=== PATIENT | female | born 1950 | race Caucasian/White ===

== ENCOUNTER 2020-05-14 13:53 | Inpatient (IN) ==
[2020-05-14] MEDS ORDERED: D5% in Water 1,000 ML IVC PRN (20:35)
[2020-05-14] MEDS ORDERED: *HR* Dextrose 50 % in Water (Vial) 50 ML VIAL IVP PRN (20:35)
[2020-05-14] MEDS ORDERED: Dextrose Gel 15 GM/37.5 ML TUBE PO PRN ×2 (20:35)
[2020-05-14] MEDS ORDERED: Dextrose Gel 15 GM/37.5 ML TUBE PO ONE (20:38)
[2020-05-15] MEDS ORDERED: Ondansetron ODT 4 MG TAB.RAPDIS PO PRN (01:48)
[2020-05-15] MEDS: *HR* Enoxaparin 40 MG/0.4 ML SYRINGE SQ SCH (05:05)
[2020-05-15] MEDS: *HR* OxyCODONE/APAP 5/325 TABLET PO PRN ×2 (05:05→19:48)
[2020-05-15] MEDS: Metoprolol 100 MG TABLET PO SCH ×2 (09:00→19:48)
[2020-05-15] MEDS: Furosemide 20 MG TABLET PO SCH (09:00)
[2020-05-15] MEDS: Acyclovir 200 MG CAPSULE PO SCH ×2 (09:00→19:48)
[2020-05-15] MEDS: Acetaminophen 325 MG TABLET PO PRN (09:00)
[2020-05-15] MEDS: Insulin DETEMIR 100 UNIT/ML X5UNITS SQ SCH (09:30)
[2020-05-15] MEDS: (Lenalidomide [Revlimid] 10 MG) PO SCH (09:39)
[2020-05-15] MEDS: Aspirin Enteric Coated 81 MG Tablet PO SCH (17:51)
[2020-05-16] MEDS: *HR* Enoxaparin 40 MG/0.4 ML SYRINGE SQ SCH (04:57)
[2020-05-16] MEDS: Acetaminophen 325 MG TABLET PO PRN ×2 (05:02→21:30)
[2020-05-16 05:50] LABS: Basophils % 0.5 %; Eosinophils # 0.3 K/mcL (0.0-0.6); Eosinophils % 6.8 %; Hematocrit 30.6 % (35.3-44.9); Hemoglobin 10.1 g/dL (11.5-15.4); Immature Granulocytes % 0.5 % (0-4); Lymphocytes # 0.5 K/mcL (0.6-4.6); Lymphocytes % 11.6 %; Mean Corpuscular Hemoglobin 29.4 pg (28.0-33.3); Mean Corpuscular Volume 89.2 fL (83.0-100.0); Mean Platelet Volume 11.2 fL (9.4-12.4); Monocytes # 0.6 K/mcL (0.0-1.3); Monocytes % 13.6 %; Neutrophils # 2.8 K/mcL (1.6-8.9); Platelet Count 144 K/mcL (140-400); Red Blood Count 3.43 M/mcL (3.82-4.97); Red Cell Distribution Width 16.3 % (11.5-14.5); White Blood Count 4.1 K/mcL (4.3-11.1)
[2020-05-16 06:02] LABS: BUN/Creatinine Ratio 19 (6-26); Blood Urea Nitrogen 11 mg/dL (8-23); Calcium 7.3 mg/dL (8.6-10.3); Carbon Dioxide 26 mEq/L (23-29); Chloride 107 mEq/L (98-107); Glucose 81 mg/dL (70-105); Osmolality,Calculated 284 (280-300); Potassium 2.9 mEq/L (3.5-5.1); Sodium 138 mEq/L (136-145); eGFR For African Americans > 60 (> 60); eGFR For Non-African Americans > 60 (> 60)
[2020-05-16] MEDS: Furosemide 20 MG TABLET PO SCH (10:01)
[2020-05-16] MEDS: Acyclovir 200 MG CAPSULE PO SCH ×2 (10:01→21:29)
[2020-05-16] MEDS: Metoprolol 100 MG TABLET PO SCH ×2 (10:02→21:28)
[2020-05-16] MEDS: *HR* OxyCODONE/APAP 5/325 TABLET PO PRN ×2 (10:02→17:11)
[2020-05-16] MEDS: Loratadine 10 MG TABLET PO SCH (10:02)
[2020-05-16] MEDS: (Lenalidomide [Revlimid] 10 MG) PO SCH (12:16)
[2020-05-16] MEDS: Insulin DETEMIR 100 UNIT/ML X5UNITS SQ SCH (12:17)
[2020-05-16] MEDS: Aspirin Enteric Coated 81 MG Tablet PO SCH (17:11)
[2020-05-17 06:07] LABS: Basophils % 0.5 %; Eosinophils # 0.3 K/mcL (0.0-0.6); Eosinophils % 6.7 %; Hematocrit 31.4 % (35.3-44.9); Immature Granulocytes % 0.3 % (0-4); Lymphocytes # 0.6 K/mcL (0.6-4.6); Mean Corpuscular HGB Conc 31.8 g/dL (31.6-35.5); Mean Corpuscular Hemoglobin 28.9 pg (28.0-33.3); Mean Corpuscular Volume 90.8 fL (83.0-100.0); Mean Platelet Volume 10.9 fL (9.4-12.4); Monocytes # 0.5 K/mcL (0.0-1.3); Monocytes % 13.4 %; Neutrophils # 2.4 K/mcL (1.6-8.9); Platelet Count 168 K/mcL (140-400); Red Blood Count 3.46 M/mcL (3.82-4.97); Red Cell Distribution Width 16.4 % (11.5-14.5); Segmented Neutrophils % 64.1 %; White Blood Count 3.7 K/mcL (4.3-11.1)
[2020-05-17 06:26] LABS: BUN/Creatinine Ratio 15 (6-26); Blood Urea Nitrogen 11 mg/dL (8-23); Calcium 7.8 mg/dL (8.6-10.3); Carbon Dioxide 28 mEq/L (23-29); Chloride 106 mEq/L (98-107); Glucose 88 mg/dL (70-105); Osmolality,Calculated 287 (280-300); Potassium 3.6 mEq/L (3.5-5.1); Sodium 139 mEq/L (136-145); eGFR For African Americans > 60 (> 60); eGFR For Non-African Americans > 60 (> 60)
[2020-05-17] MEDS: *HR* OxyCODONE/APAP 5/325 TABLET PO PRN ×2 (06:30→18:45)
[2020-05-17] MEDS: *HR* Enoxaparin 40 MG/0.4 ML SYRINGE SQ SCH (06:30)
[2020-05-17] MEDS: (Lenalidomide [Revlimid] 10 MG) PO SCH (08:22)
[2020-05-17] MEDS: Acyclovir 200 MG CAPSULE PO SCH ×2 (08:30→21:52)
[2020-05-17] MEDS: Loratadine 10 MG TABLET PO SCH ×2 (08:30→18:03)
[2020-05-17] MEDS: Furosemide 20 MG TABLET PO SCH (08:30)
[2020-05-17] MEDS: Metoprolol 100 MG TABLET PO SCH ×2 (08:30→21:51)
[2020-05-17] MEDS: Insulin DETEMIR 100 UNIT/ML X5UNITS SQ SCH (11:08)
[2020-05-17] MEDS: Acetaminophen 325 MG TABLET PO PRN (12:43)
[2020-05-17] MEDS: Aspirin Enteric Coated 81 MG Tablet PO SCH (18:03)
[2020-05-18] MEDS: *HR* Enoxaparin 40 MG/0.4 ML SYRINGE SQ SCH (06:06)
[2020-05-18] MEDS: *HR* OxyCODONE/APAP 5/325 TABLET PO PRN ×2 (06:07→18:47)
[2020-05-18] MEDS: Furosemide 20 MG TABLET PO SCH (09:09)
[2020-05-18] MEDS: Acyclovir 200 MG CAPSULE PO SCH ×2 (09:09→22:01)
[2020-05-18] MEDS: Apixaban 5 MG TABLET PO SCH ×2 (09:09→22:01)
[2020-05-18] MEDS: Metoprolol 100 MG TABLET PO SCH ×2 (09:10→22:01)
[2020-05-18] MEDS: (Lenalidomide [Revlimid] 10 MG) PO SCH (09:10)
[2020-05-18] MEDS: Insulin DETEMIR 100 UNIT/ML X5UNITS SQ SCH (11:32)
[2020-05-18] MEDS: Acetaminophen 325 MG TABLET PO PRN ×2 (14:34→22:00)
[2020-05-18] MEDS: Loratadine 10 MG TABLET PO SCH (17:28)
[2020-05-18] MEDS: Aspirin Enteric Coated 81 MG Tablet PO SCH (17:28)
[2020-05-19 06:11] LABS: Basophils # 0.1 K/mcL (0.0-0.2); Basophils % 1.4 %; Eosinophils # 0.2 K/mcL (0.0-0.6); Eosinophils % 6.5 %; Hematocrit 29.4 % (35.3-44.9); Hemoglobin 9.3 g/dL (11.5-15.4); Immature Granulocytes % 0.3 % (0-4); Lymphocytes # 0.9 K/mcL (0.6-4.6); Lymphocytes % 24.8 %; Mean Corpuscular HGB Conc 31.6 g/dL (31.6-35.5); Mean Corpuscular Hemoglobin 28.8 pg (28.0-33.3); Mean Platelet Volume 10.2 fL (9.4-12.4); Monocytes # 0.5 K/mcL (0.0-1.3); Monocytes % 12.8 %; Platelet Count 211 K/mcL (140-400); Red Blood Count 3.23 M/mcL (3.82-4.97); Red Cell Distribution Width 16.3 % (11.5-14.5); Segmented Neutrophils % 54.2 %; White Blood Count 3.7 K/mcL (4.3-11.1)
[2020-05-19 06:32] LABS: BUN/Creatinine Ratio 17 (6-26); Blood Urea Nitrogen 12 mg/dL (8-23); Calcium 7.2 mg/dL (8.6-10.3); Carbon Dioxide 27 mEq/L (23-29); Chloride 109 mEq/L (98-107); Glucose 62 mg/dL (70-105); Osmolality,Calculated 288 (280-300); Sodium 140 mEq/L (136-145); eGFR For African Americans > 60 (> 60); eGFR For Non-African Americans > 60 (> 60)
[2020-05-19] MEDS: Acyclovir 200 MG CAPSULE PO SCH ×2 (08:14→19:39)
[2020-05-19] MEDS: Apixaban 5 MG TABLET PO SCH ×2 (08:14→19:39)
[2020-05-19] MEDS: Acetaminophen 325 MG TABLET PO PRN (08:25)
[2020-05-19] MEDS: Furosemide 20 MG TABLET PO SCH (08:26)
[2020-05-19] MEDS: Metoprolol 100 MG TABLET PO SCH ×2 (08:26→19:39)
[2020-05-19] MEDS: Insulin DETEMIR 100 UNIT/ML X5UNITS SQ SCH (08:26)
[2020-05-19] MEDS: (Lenalidomide [Revlimid] 10 MG) PO SCH (08:27)
[2020-05-19] MEDS: Aspirin Enteric Coated 81 MG Tablet PO SCH (17:32)
[2020-05-19] MEDS: Loratadine 10 MG TABLET PO SCH (17:37)
[2020-05-19] MEDS: *HR* OxyCODONE/APAP 5/325 TABLET PO PRN (19:39)
[2020-05-20] MEDS: Acetaminophen 325 MG TABLET PO PRN ×2 (08:19→13:17)
[2020-05-20] MEDS: Metoprolol 100 MG TABLET PO SCH ×2 (08:19→19:39)
[2020-05-20] MEDS: Insulin DETEMIR 100 UNIT/ML X5UNITS SQ SCH (08:20)
[2020-05-20] MEDS: (Lenalidomide [Revlimid] 10 MG) PO SCH (08:20)
[2020-05-20] MEDS: Furosemide 20 MG TABLET PO SCH (08:20)
[2020-05-20] MEDS: Acyclovir 200 MG CAPSULE PO SCH ×2 (08:20→19:40)
[2020-05-20] MEDS: Apixaban 5 MG TABLET PO SCH ×2 (08:20→19:39)
[2020-05-20] MEDS: Loratadine 10 MG TABLET PO SCH (17:43)
[2020-05-20] MEDS: Aspirin Enteric Coated 81 MG Tablet PO SCH (17:43)
[2020-05-20] MEDS: *HR* OxyCODONE/APAP 5/325 TABLET PO PRN (19:39)
[2020-05-21] MEDS: Acetaminophen 325 MG TABLET PO PRN (07:37)
[2020-05-21] MEDS: Apixaban 5 MG TABLET PO SCH ×2 (08:16→19:25)
[2020-05-21] MEDS: Acyclovir 200 MG CAPSULE PO SCH ×2 (08:16→19:28)
[2020-05-21] MEDS: Insulin DETEMIR 100 UNIT/ML X5UNITS SQ SCH (08:16)
[2020-05-21] MEDS: Furosemide 20 MG TABLET PO SCH (08:17)
[2020-05-21] MEDS: (Lenalidomide [Revlimid] 10 MG) PO SCH (08:18)
[2020-05-21] MEDS: Metoprolol 100 MG TABLET PO SCH ×2 (09:54→19:28)
[2020-05-21] MEDS: *HR* OxyCODONE/APAP 5/325 TABLET PO PRN ×2 (10:09→19:27)
[2020-05-21] MEDS: Aspirin Enteric Coated 81 MG Tablet PO SCH (16:59)
[2020-05-21] MEDS: Loratadine 10 MG TABLET PO SCH (16:59)
[2020-05-22 07:30] VITALS: BP 124/72
[2020-05-22] MEDS: Apixaban 5 MG TABLET PO SCH (08:23)
[2020-05-22] MEDS: Acyclovir 200 MG CAPSULE PO SCH (08:23)
[2020-05-22] MEDS: *HR* OxyCODONE/APAP 5/325 TABLET PO PRN (08:23)
[2020-05-22] MEDS: Furosemide 20 MG TABLET PO SCH (08:24)
[2020-05-22] MEDS: Metoprolol 100 MG TABLET PO SCH (08:25)
[2020-05-22] MEDS: Insulin DETEMIR 100 UNIT/ML X5UNITS SQ SCH (09:19)
[2020-05-22] MEDS: (Lenalidomide [Revlimid] 10 MG) PO SCH (09:21)
== END 2020-05-22 11:45 | disposition home health service (06) | DRG 560 ==
LOC: INPGRE 18:40
PROVIDERS: ADMIT Family Medicine; ATTEND Family Medicine

== ENCOUNTER 2020-05-31 13:37 | Inpatient (IN) ==
[2020-05-31] MEDS ORDERED: Dextrose Gel 15 GM/37.5 ML TUBE PO PRN ×2 (19:51)
[2020-05-31] MEDS ORDERED: *HR* Dextrose 50 % in Water (Vial) 50 ML VIAL IVP PRN (19:51)
[2020-05-31] MEDS ORDERED: D5% in Water 1,000 ML IVC PRN (19:51)
[2020-05-31] MEDS ORDERED: *HR* OxyCODONE/APAP 5/325 TABLET PO PRN (19:55)
[2020-05-31] MEDS ORDERED: Ondansetron ODT 4 MG TAB.RAPDIS PO PRN (19:55)
[2020-05-31] MEDS: Gabapentin 100 MG CAPSULE PO SCH (21:16)
[2020-05-31] MEDS: Nystatin SUSP 5 ML UD.LIQ PO SCH ×2 (21:16→21:32)
[2020-05-31] MEDS: Metoprolol 100 MG TABLET PO SCH (21:16)
[2020-05-31] MEDS: Acyclovir 200 MG CAPSULE PO SCH (21:16)
[2020-05-31] MEDS: Apixaban 5 MG TABLET PO SCH (21:16)
[2020-05-31] MEDS: *HR* OxyCODONE/APAP 5/325 TABLET PO PRN (21:17)
[2020-05-31] MEDS: polyethylene glycoL 3350 17 GM POWD.PACK PO SCH (21:19)
[2020-05-31] MEDS: Acetaminophen 325 MG TABLET PO SCH (21:20)
[2020-05-31] MEDS: Insulin LISPRO 300 UNITS/3 ML VIAL SQ SCH (21:33)
[2020-06-01 05:33] LABS: Basophils % 0.8 %; Eosinophils # 0.2 K/mcL (0.0-0.6); Eosinophils % 4.9 %; Hematocrit 26.8 % (35.3-44.9); Hemoglobin 8.4 g/dL (11.5-15.4); Immature Granulocytes % 0.6 % (0-4); Lymphocytes # 0.8 K/mcL (0.6-4.6); Lymphocytes % 16.8 %; Mean Corpuscular HGB Conc 31.3 g/dL (31.6-35.5); Mean Corpuscular Hemoglobin 28.8 pg (28.0-33.3); Mean Corpuscular Volume 91.8 fL (83.0-100.0); Mean Platelet Volume 10.1 fL (9.4-12.4); Monocytes # 0.6 K/mcL (0.0-1.3); Monocytes % 12.3 %; Neutrophils # 3.2 K/mcL (1.6-8.9); Platelet Count 268 K/mcL (140-400); Red Blood Count 2.92 M/mcL (3.82-4.97); Red Cell Distribution Width 18.4 % (11.5-14.5); Segmented Neutrophils % 64.6 %; White Blood Count 4.9 K/mcL (4.3-11.1)
[2020-06-01 05:41] LABS: INR 1.3; Prothrombin Time 14.7 Seconds (9.4-12.1)
[2020-06-01 05:43] LABS: Activated Partial Thrombo Time 31.5 Seconds (26.0-36.0)
[2020-06-01] MEDS: *HR* OxyCODONE/APAP 10/325 TABLET PO PRN ×2 (05:43→17:32)
[2020-06-01 05:56] LABS: BUN/Creatinine Ratio 13 (6-26); Blood Urea Nitrogen 6 mg/dL (8-23); Calcium 7.5 mg/dL (8.6-10.3); Carbon Dioxide 24 mEq/L (23-29); Chloride 109 mEq/L (98-107); Glucose 158 mg/dL (70-105); Osmolality,Calculated 285 (280-300); Potassium 4.4 mEq/L (3.5-5.1); Sodium 137 mEq/L (136-145); eGFR For African Americans > 60 (> 60); eGFR For Non-African Americans > 60 (> 60)
[2020-06-01] MEDS: Insulin LISPRO 300 UNITS/3 ML VIAL SQ SCH ×4 (08:41→20:08)
[2020-06-01] MEDS ORDERED: Loratadine 10 MG TABLET PO SCH (09:00)
[2020-06-01] MEDS ORDERED: Aspirin Enteric Coated 81 MG Tablet PO SCH (09:00)
[2020-06-01] MEDS: Insulin DETEMIR 100 UNIT/ML X5UNITS SQ SCH (10:07)
[2020-06-01] MEDS: Metoprolol 100 MG TABLET PO SCH ×2 (10:08→20:37)
[2020-06-01] MEDS: Gabapentin 100 MG CAPSULE PO SCH ×3 (10:09→20:29)
[2020-06-01] MEDS: Acyclovir 200 MG CAPSULE PO SCH ×2 (10:10→20:32)
[2020-06-01] MEDS: Nystatin SUSP 5 ML UD.LIQ PO SCH ×3 (10:11→15:55)
[2020-06-01] MEDS: Apixaban 5 MG TABLET PO SCH ×2 (10:11→20:29)
[2020-06-01] MEDS: Furosemide 20 MG TABLET PO SCH (10:11)
[2020-06-01] MEDS: (Lenalidomide [Revlimid] 10 MG) PO SCH (10:12)
[2020-06-01] MEDS: polyethylene glycoL 3350 17 GM POWD.PACK PO SCH ×2 (10:12→20:38)
[2020-06-01] MEDS: Sennosides 8.6 MG TABLET PO SCH (10:12)
[2020-06-01] MEDS: Acetaminophen 325 MG TABLET PO SCH ×3 (10:13→20:29)
[2020-06-01] MEDS: Aspirin Enteric Coated 81 MG Tablet PO SCH (20:29)
[2020-06-01] MEDS: Loratadine 10 MG TABLET PO SCH (21:00)
[2020-06-02] MEDS: (Lenalidomide [Revlimid] 10 MG) PO SCH ×2 (08:31→16:10)
[2020-06-02] MEDS: polyethylene glycoL 3350 17 GM POWD.PACK PO SCH ×2 (08:31→21:52)
[2020-06-02] MEDS: Gabapentin 100 MG CAPSULE PO SCH ×3 (08:32→21:51)
[2020-06-02] MEDS: Acyclovir 200 MG CAPSULE PO SCH ×2 (08:32→21:49)
[2020-06-02] MEDS: Furosemide 20 MG TABLET PO SCH (08:32)
[2020-06-02] MEDS: Sennosides 8.6 MG TABLET PO SCH (08:32)
[2020-06-02] MEDS: Acetaminophen 325 MG TABLET PO SCH ×3 (08:33→21:52)
[2020-06-02] MEDS: Apixaban 5 MG TABLET PO SCH ×2 (08:33→21:50)
[2020-06-02] MEDS: Metoprolol 100 MG TABLET PO SCH ×2 (08:33→21:50)
[2020-06-02] MEDS: Insulin DETEMIR 100 UNIT/ML X5UNITS SQ SCH (08:38)
[2020-06-02] MEDS: Insulin LISPRO 300 UNITS/3 ML VIAL SQ SCH ×4 (08:39→21:51)
[2020-06-02] MEDS: *HR* OxyCODONE/APAP 5/325 TABLET PO PRN (12:02)
[2020-06-02] MEDS: Loratadine 10 MG TABLET PO SCH (21:51)
[2020-06-02] MEDS: Aspirin Enteric Coated 81 MG Tablet PO SCH (21:51)
[2020-06-03 05:13] LABS: Mean Corpuscular HGB Conc 30.8 g/dL (31.6-35.5); Mean Corpuscular Hemoglobin 28.4 pg (28.0-33.3); Mean Corpuscular Volume 92.2 fL (83.0-100.0); Mean Platelet Volume 9.7 fL (9.4-12.4); Platelet Count 308 K/mcL (140-400); Red Blood Count 2.82 M/mcL (3.82-4.97); Red Cell Distribution Width 18.3 % (11.5-14.5); White Blood Count 5.7 K/mcL (4.3-11.1)
[2020-06-03 05:30] LABS: BUN/Creatinine Ratio 12 (6-26); Blood Urea Nitrogen 6 mg/dL (8-23); Carbon Dioxide 24 mEq/L (23-29); Chloride 109 mEq/L (98-107); Glucose 190 mg/dL (70-105); Magnesium 1.7 mg/dL (1.6-2.6); Osmolality,Calculated 289 (280-300); Potassium 4.2 mEq/L (3.5-5.1); Sodium 138 mEq/L (136-145); eGFR For African Americans > 60 (> 60); eGFR For Non-African Americans > 60 (> 60)
[2020-06-03] MEDS: *HR* OxyCODONE Immed Rel 5 MG TABLET PO PRN ×3 (07:02→21:54)
[2020-06-03] MEDS: Acyclovir 200 MG CAPSULE PO SCH ×2 (08:11→21:18)
[2020-06-03] MEDS: Furosemide 20 MG TABLET PO SCH (08:11)
[2020-06-03] MEDS: Insulin DETEMIR 100 UNIT/ML X5UNITS SQ SCH (08:11)
[2020-06-03] MEDS: Gabapentin 100 MG CAPSULE PO SCH ×3 (08:11→21:17)
[2020-06-03] MEDS: Acetaminophen 325 MG TABLET PO SCH ×3 (08:11→21:25)
[2020-06-03] MEDS: Insulin LISPRO 300 UNITS/3 ML VIAL SQ SCH ×4 (08:11→21:56)
[2020-06-03] MEDS: Metoprolol 100 MG TABLET PO SCH ×2 (08:12→21:15)
[2020-06-03] MEDS: Sennosides 8.6 MG TABLET PO SCH (08:12)
[2020-06-03] MEDS: (Lenalidomide [Revlimid] 10 MG) PO SCH (08:12)
[2020-06-03] MEDS: Apixaban 5 MG TABLET PO SCH ×2 (08:12→21:14)
[2020-06-03] MEDS: polyethylene glycoL 3350 17 GM POWD.PACK PO SCH ×2 (08:12→21:25)
[2020-06-03] MEDS: *HR* FentaNYL PATCH 12 MCG PATCH TD SCH (10:41)
[2020-06-03 18:56] LABS: Basophils # 0.1 K/mcL (0.0-0.2); Basophils % 0.9 %; Eosinophils # 0.4 K/mcL (0.0-0.6); Eosinophils % 5.1 %; Hematocrit 28.7 % (35.3-44.9); Hemoglobin 8.9 g/dL (11.5-15.4); Lymphocytes # 1.1 K/mcL (0.6-4.6); Lymphocytes % 16.6 %; Mean Corpuscular Hemoglobin 28.6 pg (28.0-33.3); Mean Corpuscular Volume 92.3 fL (83.0-100.0); Mean Platelet Volume 9.8 fL (9.4-12.4); Monocytes # 0.7 K/mcL (0.0-1.3); Monocytes % 9.9 %; Neutrophils # 4.5 K/mcL (1.6-8.9); Platelet Count 336 K/mcL (140-400); Red Blood Count 3.11 M/mcL (3.82-4.97); Red Cell Distribution Width 18.5 % (11.5-14.5); Segmented Neutrophils % 66.5 %; White Blood Count 6.8 K/mcL (4.3-11.1)
[2020-06-03 19:06] LABS: BUN/Creatinine Ratio 16 (6-26); Blood Urea Nitrogen 9 mg/dL (8-23); Calcium 8.2 mg/dL (8.6-10.3); Carbon Dioxide 22 mEq/L (23-29); Chloride 108 mEq/L (98-107); Glucose 184 mg/dL (70-105); Osmolality,Calculated 287 (280-300); Potassium 4.1 mEq/L (3.5-5.1); Sodium 137 mEq/L (136-145); eGFR For African Americans > 60 (> 60); eGFR For Non-African Americans > 60 (> 60)
[2020-06-03] MEDS: Aspirin Enteric Coated 81 MG Tablet PO SCH (21:13)
[2020-06-03] MEDS: Loratadine 10 MG TABLET PO SCH (21:14)
[2020-06-03] MEDS: Nystatin Cream 15 GM TUBE TP SCH (21:58)
[2020-06-03 22:31] LABS: Bilirubin,Urine Negative (Negative); Blood,Urine Negative (Negative); Clarity,Urine Slightly Cloudy (Clear); Glucose,Urine (UA) 100 mg/dL (Normal); Ketones,Urine Negative (Negative); Leukocyte Esterase,Urine Negative (Negative); Nitrite,Urine Negative (Negative); PH,Urine 5.5 pH Units (5.0-8.0); Protein,Urine Negative (Neg-Trace); Urobilinogen,Urine Normal (Normal)
[2020-06-03 22:33] LABS: Color,Urine Light Yellow (Yellow)
[2020-06-04 05:09] LABS: Basophils # 0.1 K/mcL (0.0-0.2); Basophils % 1.2 %; Eosinophils # 0.4 K/mcL (0.0-0.6); Eosinophils % 6.6 %; Hematocrit 27.3 % (35.3-44.9); Hemoglobin 8.4 g/dL (11.5-15.4); Immature Granulocytes % 1.3 % (0-4); Lymphocytes # 1.1 K/mcL (0.6-4.6); Lymphocytes % 18.3 %; Mean Corpuscular HGB Conc 30.8 g/dL (31.6-35.5); Mean Corpuscular Hemoglobin 28.5 pg (28.0-33.3); Mean Corpuscular Volume 92.5 fL (83.0-100.0); Mean Platelet Volume 10.1 fL (9.4-12.4); Monocytes # 0.6 K/mcL (0.0-1.3); Monocytes % 9.9 %; Neutrophils # 3.7 K/mcL (1.6-8.9); Platelet Count 317 K/mcL (140-400); Red Blood Count 2.95 M/mcL (3.82-4.97); Red Cell Distribution Width 18.3 % (11.5-14.5); Segmented Neutrophils % 62.7 %
[2020-06-04] MEDS: *HR* OxyCODONE Immed Rel 5 MG TABLET PO PRN ×2 (06:09→10:42)
[2020-06-04] MEDS: Insulin LISPRO 300 UNITS/3 ML VIAL SQ SCH ×4 (08:12→20:26)
[2020-06-04] MEDS: Sennosides 8.6 MG TABLET PO SCH (09:07)
[2020-06-04] MEDS: Acyclovir 200 MG CAPSULE PO SCH ×2 (09:08→20:24)
[2020-06-04] MEDS: Apixaban 5 MG TABLET PO SCH ×2 (09:08→20:24)
[2020-06-04] MEDS: Acetaminophen 325 MG TABLET PO SCH ×3 (09:08→20:24)
[2020-06-04] MEDS: Gabapentin 100 MG CAPSULE PO SCH ×3 (09:09→20:24)
[2020-06-04] MEDS: Metoprolol 100 MG TABLET PO SCH ×2 (09:09→20:25)
[2020-06-04] MEDS: polyethylene glycoL 3350 17 GM POWD.PACK PO SCH ×2 (09:10→20:27)
[2020-06-04] MEDS: Insulin DETEMIR 100 UNIT/ML X5UNITS SQ SCH (09:12)
[2020-06-04] MEDS: (Lenalidomide [Revlimid] 10 MG) PO SCH (09:14)
[2020-06-04] MEDS: Nystatin Cream 15 GM TUBE TP SCH ×2 (09:16→20:28)
[2020-06-04] MEDS: Aspirin Enteric Coated 81 MG Tablet PO SCH (20:25)
[2020-06-04] MEDS: Loratadine 10 MG TABLET PO SCH (20:25)
[2020-06-05 05:29] LABS: Basophils % 0.8 %; Eosinophils # 0.3 K/mcL (0.0-0.6); Eosinophils % 6.9 %; Hematocrit 28.3 % (35.3-44.9); Hemoglobin 8.8 g/dL (11.5-15.4); Immature Granulocytes % 1.2 % (0-4); Lymphocytes # 0.8 K/mcL (0.6-4.6); Lymphocytes % 15.5 %; Mean Corpuscular HGB Conc 31.1 g/dL (31.6-35.5); Mean Corpuscular Hemoglobin 28.9 pg (28.0-33.3); Mean Corpuscular Volume 92.8 fL (83.0-100.0); Mean Platelet Volume 10.1 fL (9.4-12.4); Monocytes # 0.4 K/mcL (0.0-1.3); Monocytes % 8.8 %; Neutrophils # 3.3 K/mcL (1.6-8.9); Platelet Count 313 K/mcL (140-400); Red Blood Count 3.05 M/mcL (3.82-4.97); Red Cell Distribution Width 18.2 % (11.5-14.5); Segmented Neutrophils % 66.8 %; White Blood Count 4.9 K/mcL (4.3-11.1)
[2020-06-05 05:44] LABS: BUN/Creatinine Ratio 19 (6-26); Blood Urea Nitrogen 10 mg/dL (8-23); Carbon Dioxide 25 mEq/L (23-29); Chloride 108 mEq/L (98-107); Potassium 3.8 mEq/L (3.5-5.1); Sodium 139 mEq/L (136-145); eGFR For African Americans > 60 (> 60); eGFR For Non-African Americans > 60 (> 60)
[2020-06-05 05:49] LABS: Calcium 7.9 mg/dL (8.6-10.3); Glucose 177 mg/dL (70-105); Osmolality,Calculated 291 (280-300)
[2020-06-05] MEDS: Furosemide 20 MG TABLET PO SCH (08:17)
[2020-06-05] MEDS: polyethylene glycoL 3350 17 GM POWD.PACK PO SCH ×2 (08:22→20:39)
[2020-06-05] MEDS: Metoprolol 100 MG TABLET PO SCH ×2 (08:22→20:38)
[2020-06-05] MEDS: Sennosides 8.6 MG TABLET PO SCH (08:23)
[2020-06-05] MEDS: Acetaminophen 325 MG TABLET PO SCH ×3 (08:23→20:40)
[2020-06-05] MEDS: Apixaban 5 MG TABLET PO SCH ×2 (08:24→20:36)
[2020-06-05] MEDS: Acyclovir 200 MG CAPSULE PO SCH ×2 (08:24→20:40)
[2020-06-05] MEDS: Insulin DETEMIR 100 UNIT/ML X5UNITS SQ SCH (08:25)
[2020-06-05] MEDS: Gabapentin 100 MG CAPSULE PO SCH ×3 (08:25→20:38)
[2020-06-05] MEDS: (Lenalidomide [Revlimid] 10 MG) PO SCH (08:25)
[2020-06-05] MEDS: Insulin LISPRO 300 UNITS/3 ML VIAL SQ SCH ×4 (08:26→20:38)
[2020-06-05] MEDS: *HR* OxyCODONE Immed Rel 5 MG TABLET PO PRN ×2 (10:12→20:37)
[2020-06-05] MEDS: Nystatin Cream 15 GM TUBE TP SCH ×2 (11:30→20:40)
[2020-06-05 15:04] LABS: Adenovirus Not Detected (Not Detect); Bordetella Pertussis Not Detected (Not Detect); Chlamydophila pneumoniae Not Detected (Not Detect); Coronavirus 229E Not Detected (Not Detect); Coronavirus HKU1 Not Detected (Not Detect); Coronavirus NL63 Not Detected (Not Detect); Coronavirus OC43 Not Detected (Not Detect); Human Metapneumovirus Not Detected (Not Detect); Human Rhinovirus/Enterovirus Not Detected (Not Detect); Influenza A Subtype 2009 H1 Not Detected (Not Detect); Influenza B Not Detected (Not Detect); Mycoplasma pneumoniae Not Detected (Not Detect); Parainfluenza Virus 1 Not Detected (Not Detect); Parainfluenza Virus 2 Not Detected (Not Detect); Parainfluenza Virus 3 Not Detected (Not Detect); Parainfluenza Virus 4 Not Detected (Not Detect); Respiratory Syncytial Virus Not Detected (Not Detect); SARS-CoV-2 Not Detected (Not Detect)
[2020-06-05] MEDS ORDERED: levoFLOXacin 500 MG TABLET PO SCH (16:28)
[2020-06-05] MEDS: dexAMETHasone 4 MG TABLET PO SCH (18:33)
[2020-06-05] MEDS: levoFLOXacin 500 MG TABLET PO SCH (20:36)
[2020-06-05] MEDS: Loratadine 10 MG TABLET PO SCH (20:36)
[2020-06-05] MEDS: Aspirin Enteric Coated 81 MG Tablet PO SCH (20:38)
[2020-06-06] MEDS: Insulin DETEMIR 100 UNIT/ML X5UNITS SQ SCH (08:28)
[2020-06-06] MEDS: Insulin LISPRO 300 UNITS/3 ML VIAL SQ SCH ×4 (08:28→21:20)
[2020-06-06] MEDS: Acyclovir 200 MG CAPSULE PO SCH ×2 (08:30→21:18)
[2020-06-06] MEDS: Acetaminophen 325 MG TABLET PO SCH ×3 (08:30→21:16)
[2020-06-06] MEDS: Gabapentin 100 MG CAPSULE PO SCH ×3 (08:30→21:17)
[2020-06-06] MEDS: (Lenalidomide [Revlimid] 10 MG) PO SCH (08:30)
[2020-06-06] MEDS: Metoprolol 100 MG TABLET PO SCH ×2 (08:30→21:16)
[2020-06-06] MEDS: Apixaban 5 MG TABLET PO SCH ×2 (08:30→21:18)
[2020-06-06] MEDS: polyethylene glycoL 3350 17 GM POWD.PACK PO SCH ×2 (08:31→21:18)
[2020-06-06] MEDS: Sennosides 8.6 MG TABLET PO SCH (08:31)
[2020-06-06] MEDS: Nystatin Cream 15 GM TUBE TP SCH ×2 (09:33→21:18)
[2020-06-06] MEDS: *HR* FentaNYL PATCH 12 MCG PATCH TD SCH (09:33)
[2020-06-06] MEDS: *HR* OxyCODONE Immed Rel 5 MG TABLET PO PRN (17:37)
[2020-06-06] MEDS ORDERED: 0.9 % Sodium Chloride 500 ML IVC ONE (21:09)
[2020-06-06] MEDS: Loratadine 10 MG TABLET PO SCH (21:17)
[2020-06-06] MEDS: Aspirin Enteric Coated 81 MG Tablet PO SCH (21:17)
[2020-06-06] MEDS: levoFLOXacin 500 MG TABLET PO SCH (21:18)
[2020-06-06] MEDS: 0.9 % Sodium Chloride 1,000 ML IVC SCH (22:11)
[2020-06-07] MEDS: Acetaminophen 325 MG TABLET PO SCH ×3 (02:55→21:37)
[2020-06-07 05:57] LABS: Basophils % 0.3 %; Eosinophils # 0.3 K/mcL (0.0-0.6); Eosinophils % 4.8 %; Hematocrit 25.8 % (35.3-44.9); Lymphocytes # 0.9 K/mcL (0.6-4.6); Lymphocytes % 14.7 %; Mean Corpuscular Hemoglobin 29.1 pg (28.0-33.3); Mean Corpuscular Volume 93.8 fL (83.0-100.0); Mean Platelet Volume 10.3 fL (9.4-12.4); Monocytes # 0.4 K/mcL (0.0-1.3); Monocytes % 6.3 %; Neutrophils # 4.3 K/mcL (1.6-8.9); Platelet Count 316 K/mcL (140-400); Red Blood Count 2.75 M/mcL (3.82-4.97); Segmented Neutrophils % 72.9 %; White Blood Count 5.9 K/mcL (4.3-11.1)
[2020-06-07 06:07] LABS: BUN/Creatinine Ratio 26 (6-26); Blood Urea Nitrogen 17 mg/dL (8-23); Calcium 7.5 mg/dL (8.6-10.3); Carbon Dioxide 25 mEq/L (23-29); Chloride 106 mEq/L (98-107); Glucose 208 mg/dL (70-105); Osmolality,Calculated 292 (280-300); Potassium 3.8 mEq/L (3.5-5.1); Sodium 137 mEq/L (136-145); eGFR For African Americans > 60 (> 60); eGFR For Non-African Americans > 60 (> 60)
[2020-06-07] MEDS: polyethylene glycoL 3350 17 GM POWD.PACK PO SCH ×2 (08:24→21:38)
[2020-06-07] MEDS: 0.9 % Sodium Chloride 1,000 ML IVC SCH (08:30)
[2020-06-07] MEDS: Gabapentin 100 MG CAPSULE PO SCH ×3 (08:45→21:35)
[2020-06-07] MEDS: Insulin DETEMIR 100 UNIT/ML X5UNITS SQ SCH (08:45)
[2020-06-07] MEDS: *HR* OxyCODONE Immed Rel 5 MG TABLET PO PRN (08:45)
[2020-06-07] MEDS: Apixaban 5 MG TABLET PO SCH ×2 (08:45→21:35)
[2020-06-07] MEDS: Insulin LISPRO 300 UNITS/3 ML VIAL SQ SCH ×4 (08:46→21:36)
[2020-06-07] MEDS: Acyclovir 200 MG CAPSULE PO SCH ×2 (08:46→21:35)
[2020-06-07] MEDS: (Lenalidomide [Revlimid] 10 MG) PO SCH (08:46)
[2020-06-07] MEDS: Sennosides 8.6 MG TABLET PO SCH (08:46)
[2020-06-07] MEDS: Nystatin Cream 15 GM TUBE TP SCH ×2 (08:46→21:39)
[2020-06-07] MEDS: Metoprolol 100 MG TABLET PO SCH ×2 (08:47→22:45)
[2020-06-07] MEDS: 0.9 % Sodium Chloride 1,000 ML IV SCH ×2 (08:47→21:15)
[2020-06-07 19:25] LABS: Basophils % 0.3 %; Eosinophils # 0.5 K/mcL (0.0-0.6); Hematocrit 29.8 % (35.3-44.9); Hemoglobin 8.9 g/dL (11.5-15.4); Immature Granulocytes % 0.5 % (0-4); Lymphocytes % 12.7 %; Mean Corpuscular HGB Conc 29.9 g/dL (31.6-35.5); Mean Corpuscular Hemoglobin 28.2 pg (28.0-33.3); Mean Corpuscular Volume 94.3 fL (83.0-100.0); Mean Platelet Volume 10.2 fL (9.4-12.4); Monocytes # 0.4 K/mcL (0.0-1.3); Monocytes % 4.7 %; Neutrophils # 5.8 K/mcL (1.6-8.9); Platelet Count 353 K/mcL (140-400); Red Blood Count 3.16 M/mcL (3.82-4.97); Red Cell Distribution Width 18.1 % (11.5-14.5); Segmented Neutrophils % 75.8 %; White Blood Count 7.6 K/mcL (4.3-11.1)
[2020-06-07 19:40] LABS: BUN/Creatinine Ratio 29 (6-26); Blood Urea Nitrogen 17 mg/dL (8-23); Calcium 7.6 mg/dL (8.6-10.3); Carbon Dioxide 22 mEq/L (23-29); Chloride 109 mEq/L (98-107); Glucose 157 mg/dL (70-105); Magnesium 1.8 mg/dL (1.6-2.6); Osmolality,Calculated 293 (280-300); Potassium 3.5 mEq/L (3.5-5.1); Sodium 139 mEq/L (136-145); eGFR For African Americans > 60 (> 60); eGFR For Non-African Americans > 60 (> 60)
[2020-06-07 19:54] LABS: Thyroid Stimulating Hormone 2.388 mcIU/mL (0.340-5.600)
[2020-06-07] MEDS ORDERED: DilTIAZem 50 MG/50 ML IV.SOLN IVC SCH (20:00)
[2020-06-07] MEDS ORDERED: 0.9 % Sodium Chloride 500 ML IVC ONE (21:30)
[2020-06-07] MEDS: levoFLOXacin 500 MG TABLET PO SCH (21:36)
[2020-06-07] MEDS: Loratadine 10 MG TABLET PO SCH (21:36)
[2020-06-07] MEDS: Aspirin Enteric Coated 81 MG Tablet PO SCH (21:36)
[2020-06-08] MEDS: 0.9 % Sodium Chloride 1,000 ML IV SCH ×3 (01:35→17:50)
[2020-06-08] MEDS: *HR* OxyCODONE Immed Rel 5 MG TABLET PO PRN (03:59)
[2020-06-08 07:46] LABS: Basophils % 0.5 %; Eosinophils # 0.5 K/mcL (0.0-0.6); Hematocrit 29.7 % (35.3-44.9); Hemoglobin 8.9 g/dL (11.5-15.4); Immature Granulocytes % 0.9 % (0-4); Lymphocytes # 0.7 K/mcL (0.6-4.6); Lymphocytes % 11.7 %; Mean Corpuscular Hemoglobin 28.6 pg (28.0-33.3); Mean Corpuscular Volume 95.5 fL (83.0-100.0); Mean Platelet Volume 10.7 fL (9.4-12.4); Monocytes # 0.2 K/mcL (0.0-1.3); Monocytes % 4.1 %; Neutrophils # 4.2 K/mcL (1.6-8.9); Platelet Count 299 K/mcL (140-400); Red Blood Count 3.11 M/mcL (3.82-4.97); Red Cell Distribution Width 18.1 % (11.5-14.5); Segmented Neutrophils % 74.8 %; White Blood Count 5.7 K/mcL (4.3-11.1)
[2020-06-08 07:58] LABS: BUN/Creatinine Ratio 27 (6-26); Blood Urea Nitrogen 13 mg/dL (8-23); Carbon Dioxide 24 mEq/L (23-29); Chloride 110 mEq/L (98-107); Glucose 164 mg/dL (70-105); Osmolality,Calculated 294 (280-300); Potassium 3.6 mEq/L (3.5-5.1); Sodium 140 mEq/L (136-145); eGFR For African Americans > 60 (> 60); eGFR For Non-African Americans > 60 (> 60)
[2020-06-08] MEDS: Metoprolol 100 MG TABLET PO SCH (09:00)
[2020-06-08] MEDS: (Lenalidomide [Revlimid] 10 MG) PO SCH (09:18)
[2020-06-08] MEDS: Acyclovir 200 MG CAPSULE PO SCH ×2 (09:18→20:42)
[2020-06-08] MEDS: Sennosides 8.6 MG TABLET PO SCH (09:18)
[2020-06-08] MEDS: Gabapentin 100 MG CAPSULE PO SCH ×3 (09:18→20:42)
[2020-06-08] MEDS: Apixaban 5 MG TABLET PO SCH ×2 (09:19→20:43)
[2020-06-08] MEDS: Acetaminophen 325 MG TABLET PO SCH ×3 (09:19→20:42)
[2020-06-08] MEDS: Insulin LISPRO 300 UNITS/3 ML VIAL SQ SCH ×4 (09:20→20:43)
[2020-06-08] MEDS: Insulin DETEMIR 100 UNIT/ML X5UNITS SQ SCH (09:23)
[2020-06-08] MEDS: polyethylene glycoL 3350 17 GM POWD.PACK PO SCH ×2 (09:24→20:43)
[2020-06-08] MEDS: Nystatin Cream 15 GM TUBE TP SCH ×2 (09:25→20:54)
[2020-06-08] MEDS: Aspirin Enteric Coated 81 MG Tablet PO SCH (20:42)
[2020-06-08] MEDS: levoFLOXacin 500 MG TABLET PO SCH (20:42)
[2020-06-08] MEDS: Loratadine 10 MG TABLET PO SCH (20:43)
[2020-06-09] MEDS: 0.9 % Sodium Chloride 1,000 ML IV SCH ×3 (03:09→17:33)
[2020-06-09] MEDS: *HR* OxyCODONE Immed Rel 5 MG TABLET PO PRN (04:24)
[2020-06-09] MEDS: Acetaminophen 325 MG TABLET PO SCH ×3 (08:10→20:14)
[2020-06-09] MEDS: Apixaban 5 MG TABLET PO SCH ×2 (08:12→20:13)
[2020-06-09] MEDS: Acyclovir 200 MG CAPSULE PO SCH ×2 (08:12→20:13)
[2020-06-09] MEDS: Gabapentin 100 MG CAPSULE PO SCH ×3 (08:12→20:16)
[2020-06-09] MEDS: (Lenalidomide [Revlimid] 10 MG) PO SCH (08:13)
[2020-06-09] MEDS: Sennosides 8.6 MG TABLET PO SCH (08:13)
[2020-06-09] MEDS: Insulin LISPRO 300 UNITS/3 ML VIAL SQ SCH ×4 (08:14→20:17)
[2020-06-09] MEDS: polyethylene glycoL 3350 17 GM POWD.PACK PO SCH ×2 (08:15→20:17)
[2020-06-09] MEDS: Insulin DETEMIR 100 UNIT/ML X5UNITS SQ SCH (08:22)
[2020-06-09] MEDS: Nystatin Cream 15 GM TUBE TP SCH ×2 (08:23→20:18)
[2020-06-09 12:05] LABS: Basophils % 0.4 %; Eosinophils # 0.3 K/mcL (0.0-0.6); Eosinophils % 6.2 %; Hematocrit 30.1 % (35.3-44.9); Hemoglobin 9.2 g/dL (11.5-15.4); Immature Granulocytes % 0.5 % (0-4); Lymphocytes # 0.4 K/mcL (0.6-4.6); Lymphocytes % 7.8 %; Mean Corpuscular HGB Conc 30.6 g/dL (31.6-35.5); Mean Corpuscular Hemoglobin 28.8 pg (28.0-33.3); Mean Corpuscular Volume 94.1 fL (83.0-100.0); Mean Platelet Volume 10.2 fL (9.4-12.4); Monocytes # 0.2 K/mcL (0.0-1.3); Monocytes % 4.4 %; Neutrophils # 4.4 K/mcL (1.6-8.9); Platelet Count 319 K/mcL (140-400); Red Cell Distribution Width 17.9 % (11.5-14.5); Segmented Neutrophils % 80.7 %; White Blood Count 5.5 K/mcL (4.3-11.1)
[2020-06-09 12:18] LABS: BUN/Creatinine Ratio 15 (6-26); Blood Urea Nitrogen 8 mg/dL (8-23); Calcium 6.7 mg/dL (8.6-10.3); Carbon Dioxide 23 mEq/L (23-29); Chloride 110 mEq/L (98-107); Glucose 144 mg/dL (70-105); Osmolality,Calculated 289 (280-300); Potassium 3.7 mEq/L (3.5-5.1); Sodium 139 mEq/L (136-145); eGFR For African Americans > 60 (> 60); eGFR For Non-African Americans > 60 (> 60)
[2020-06-09] MEDS: Loratadine 10 MG TABLET PO SCH (20:14)
[2020-06-09] MEDS: levoFLOXacin 500 MG TABLET PO SCH (20:15)
[2020-06-09] MEDS: Aspirin Enteric Coated 81 MG Tablet PO SCH (20:15)
[2020-06-10] MEDS: *HR* OxyCODONE Immed Rel 5 MG TABLET PO PRN ×2 (03:20→08:03)
[2020-06-10] MEDS: Apixaban 5 MG TABLET PO SCH ×2 (08:05→19:46)
[2020-06-10] MEDS: Acetaminophen 325 MG TABLET PO SCH ×3 (08:05→19:46)
[2020-06-10] MEDS: Acyclovir 200 MG CAPSULE PO SCH ×2 (08:06→19:45)
[2020-06-10] MEDS: Gabapentin 100 MG CAPSULE PO SCH ×3 (08:06→19:45)
[2020-06-10] MEDS: Nystatin Cream 15 GM TUBE TP SCH ×2 (08:06→19:48)
[2020-06-10] MEDS: Insulin DETEMIR 100 UNIT/ML X5UNITS SQ SCH (08:07)
[2020-06-10] MEDS: Insulin LISPRO 300 UNITS/3 ML VIAL SQ SCH ×4 (08:08→20:30)
[2020-06-10] MEDS: polyethylene glycoL 3350 17 GM POWD.PACK PO SCH ×2 (08:09→19:47)
[2020-06-10] MEDS: (Lenalidomide [Revlimid] 10 MG) PO SCH (08:09)
[2020-06-10] MEDS: Sennosides 8.6 MG TABLET PO SCH (08:10)
[2020-06-10] MEDS: levoFLOXacin 500 MG TABLET PO SCH (19:45)
[2020-06-10] MEDS: Loratadine 10 MG TABLET PO SCH (19:45)
[2020-06-10] MEDS: Aspirin Enteric Coated 81 MG Tablet PO SCH (19:46)
[2020-06-11] MEDS: *HR* OxyCODONE Immed Rel 5 MG TABLET PO PRN ×2 (01:44→08:28)
[2020-06-11 05:02] LABS: Basophils % 0.5 %; Eosinophils # 0.4 K/mcL (0.0-0.6); Eosinophils % 10.6 %; Hematocrit 28.3 % (35.3-44.9); Hemoglobin 8.6 g/dL (11.5-15.4); Immature Granulocytes % 0.5 % (0-4); Lymphocytes # 0.5 K/mcL (0.6-4.6); Lymphocytes % 13.4 %; Mean Corpuscular HGB Conc 30.4 g/dL (31.6-35.5); Mean Corpuscular Hemoglobin 28.7 pg (28.0-33.3); Mean Corpuscular Volume 94.3 fL (83.0-100.0); Mean Platelet Volume 10.2 fL (9.4-12.4); Monocytes # 0.3 K/mcL (0.0-1.3); Monocytes % 7.9 %; Neutrophils # 2.5 K/mcL (1.6-8.9); Platelet Count 290 K/mcL (140-400); Segmented Neutrophils % 67.1 %; White Blood Count 3.7 K/mcL (4.3-11.1)
[2020-06-11 05:16] LABS: BUN/Creatinine Ratio 20 (6-26); Blood Urea Nitrogen 9 mg/dL (8-23); Calcium 7.3 mg/dL (8.6-10.3); Carbon Dioxide 26 mEq/L (23-29); Chloride 109 mEq/L (98-107); Glucose 175 mg/dL (70-105); Osmolality,Calculated 291 (280-300); Potassium 3.6 mEq/L (3.5-5.1); Sodium 139 mEq/L (136-145); eGFR For African Americans > 60 (> 60); eGFR For Non-African Americans > 60 (> 60)
[2020-06-11] MEDS: Apixaban 5 MG TABLET PO SCH ×2 (08:25→19:34)
[2020-06-11] MEDS: Insulin DETEMIR 100 UNIT/ML X5UNITS SQ SCH (08:25)
[2020-06-11] MEDS: Gabapentin 100 MG CAPSULE PO SCH ×3 (08:25→19:33)
[2020-06-11] MEDS: Acyclovir 200 MG CAPSULE PO SCH ×2 (08:25→19:32)
[2020-06-11] MEDS: Acetaminophen 325 MG TABLET PO SCH ×3 (08:26→19:31)
[2020-06-11] MEDS: Sennosides 8.6 MG TABLET PO SCH (08:26)
[2020-06-11] MEDS: polyethylene glycoL 3350 17 GM POWD.PACK PO SCH ×2 (08:27→19:35)
[2020-06-11] MEDS: (Lenalidomide [Revlimid] 10 MG) PO SCH (08:31)
[2020-06-11] MEDS: Insulin LISPRO 300 UNITS/3 ML VIAL SQ SCH ×4 (08:32→20:28)
[2020-06-11] MEDS: Aspirin Enteric Coated 81 MG Tablet PO SCH (19:33)
[2020-06-11] MEDS: levoFLOXacin 500 MG TABLET PO SCH (19:33)
[2020-06-11] MEDS: Loratadine 10 MG TABLET PO SCH (19:33)
[2020-06-12] MEDS: Apixaban 5 MG TABLET PO SCH ×2 (08:02→20:31)
[2020-06-12] MEDS: Gabapentin 100 MG CAPSULE PO SCH ×3 (08:02→20:30)
[2020-06-12] MEDS: Acyclovir 200 MG CAPSULE PO SCH ×2 (08:02→20:30)
[2020-06-12] MEDS: polyethylene glycoL 3350 17 GM POWD.PACK PO SCH ×2 (08:03→20:31)
[2020-06-12] MEDS: Insulin LISPRO 300 UNITS/3 ML VIAL SQ SCH ×4 (08:03→20:34)
[2020-06-12] MEDS: Sennosides 8.6 MG TABLET PO SCH (08:03)
[2020-06-12] MEDS: Acetaminophen 325 MG TABLET PO SCH ×3 (08:03→20:30)
[2020-06-12] MEDS: (Lenalidomide [Revlimid] 10 MG) PO SCH (08:03)
[2020-06-12] MEDS: Insulin DETEMIR 100 UNIT/ML X5UNITS SQ SCH (08:13)
[2020-06-12] MEDS: *HR* OxyCODONE Immed Rel 5 MG TABLET PO PRN (13:53)
[2020-06-12] MEDS: dexAMETHasone 4 MG TABLET PO SCH (16:10)
[2020-06-12] MEDS: levoFLOXacin 500 MG TABLET PO SCH (20:30)
[2020-06-12] MEDS: Loratadine 10 MG TABLET PO SCH (20:30)
[2020-06-12] MEDS: Aspirin Enteric Coated 81 MG Tablet PO SCH (20:30)
[2020-06-13] MEDS: *HR* OxyCODONE Immed Rel 5 MG TABLET PO PRN (04:13)
[2020-06-13 05:55] LABS: Basophils % 0.3 %; Eosinophils % 0.3 %; Hematocrit 31.5 % (35.3-44.9); Hemoglobin 9.4 g/dL (11.5-15.4); Immature Granulocytes % 0.6 % (0-4); Lymphocytes # 0.3 K/mcL (0.6-4.6); Lymphocytes % 9.2 %; Mean Corpuscular HGB Conc 29.8 g/dL (31.6-35.5); Mean Corpuscular Hemoglobin 27.8 pg (28.0-33.3); Mean Corpuscular Volume 93.2 fL (83.0-100.0); Mean Platelet Volume 9.9 fL (9.4-12.4); Monocytes # 0.1 K/mcL (0.0-1.3); Monocytes % 2.2 %; Neutrophils # 2.7 K/mcL (1.6-8.9); Platelet Count 300 K/mcL (140-400); Red Blood Count 3.38 M/mcL (3.82-4.97); Red Cell Distribution Width 18.2 % (11.5-14.5); Segmented Neutrophils % 87.4 %; White Blood Count 3.1 K/mcL (4.3-11.1)
[2020-06-13 06:11] LABS: Alanine Aminotransferase 5 Units/L (7-52); Albumin 2.8 g/dL (3.5-5.7); Albumin/Globulin Ratio 1.2 (1.1-2.2); Alkaline Phosphatase 149 Units/L (34-104); Aspartate Amino Transferase 6 Units/L (13-39); BUN/Creatinine Ratio 21 (6-26); Bilirubin,Total 0.4 mg/dL (0.3-1.0); Blood Urea Nitrogen 11 mg/dL (8-23); Calcium 7.3 mg/dL (8.6-10.3); Carbon Dioxide 23 mEq/L (23-29); Chloride 105 mEq/L (98-107); Globulin 2.3 g/dL (2.4-3.5); Glucose 301 mg/dL (70-105); Osmolality,Calculated 291 (280-300); Potassium 4.5 mEq/L (3.5-5.1); Sodium 135 mEq/L (136-145); Total Protein 5.1 g/dL (6.4-8.9); eGFR For African Americans > 60 (> 60); eGFR For Non-African Americans > 60 (> 60)
[2020-06-13] MEDS: Insulin LISPRO 300 UNITS/3 ML VIAL SQ SCH ×4 (07:52→20:28)
[2020-06-13] MEDS: Acyclovir 200 MG CAPSULE PO SCH ×2 (07:53→20:24)
[2020-06-13] MEDS: (Lenalidomide [Revlimid] 10 MG) PO SCH (07:53)
[2020-06-13] MEDS: Apixaban 5 MG TABLET PO SCH ×2 (07:53→20:24)
[2020-06-13] MEDS: Gabapentin 100 MG CAPSULE PO SCH ×3 (07:53→20:29)
[2020-06-13] MEDS: Acetaminophen 325 MG TABLET PO SCH ×3 (07:53→20:25)
[2020-06-13] MEDS: polyethylene glycoL 3350 17 GM POWD.PACK PO SCH ×2 (07:54→20:29)
[2020-06-13] MEDS: Sennosides 8.6 MG TABLET PO SCH (07:54)
[2020-06-13] MEDS: Insulin DETEMIR 100 UNIT/ML X5UNITS SQ SCH (10:13)
[2020-06-13] MEDS: DilTIAZem CD (24hr) 120 MG CAP.ER.24H PO SCH ×2 (16:05→20:26)
[2020-06-13] MEDS: Loratadine 10 MG TABLET PO SCH (20:25)
[2020-06-13] MEDS: Aspirin Enteric Coated 81 MG Tablet PO SCH (20:27)
[2020-06-14] MEDS: Insulin LISPRO 300 UNITS/3 ML VIAL SQ SCH ×4 (08:18→20:37)
[2020-06-14] MEDS: Insulin DETEMIR 100 UNIT/ML X5UNITS SQ SCH (08:19)
[2020-06-14] MEDS: (Lenalidomide [Revlimid] 10 MG) PO SCH (08:22)
[2020-06-14] MEDS: Acyclovir 200 MG CAPSULE PO SCH ×2 (08:23→20:36)
[2020-06-14] MEDS: Acetaminophen 325 MG TABLET PO SCH ×3 (08:23→20:33)
[2020-06-14] MEDS: Sennosides 8.6 MG TABLET PO SCH (08:24)
[2020-06-14] MEDS: polyethylene glycoL 3350 17 GM POWD.PACK PO SCH ×2 (08:24→20:36)
[2020-06-14] MEDS: Gabapentin 100 MG CAPSULE PO SCH ×3 (08:24→20:34)
[2020-06-14] MEDS: DilTIAZem CD (24hr) 120 MG CAP.ER.24H PO SCH ×3 (08:24→20:35)
[2020-06-14] MEDS: Apixaban 5 MG TABLET PO SCH ×2 (08:24→20:32)
[2020-06-14] MEDS: *HR* OxyCODONE Immed Rel 5 MG TABLET PO PRN (08:24)
[2020-06-14] MEDS: Loratadine 10 MG TABLET PO SCH (20:35)
[2020-06-14] MEDS: Aspirin Enteric Coated 81 MG Tablet PO SCH (20:35)
[2020-06-15] MEDS: *HR* OxyCODONE Immed Rel 5 MG TABLET PO PRN ×2 (04:40→12:50)
[2020-06-15] MEDS: Apixaban 5 MG TABLET PO SCH ×2 (08:46→21:11)
[2020-06-15] MEDS: DilTIAZem CD (24hr) 120 MG CAP.ER.24H PO SCH ×2 (08:46→15:12)
[2020-06-15] MEDS: Gabapentin 100 MG CAPSULE PO SCH ×3 (08:46→21:11)
[2020-06-15] MEDS: Acetaminophen 325 MG TABLET PO SCH ×3 (08:46→21:11)
[2020-06-15] MEDS: (Lenalidomide [Revlimid] 10 MG) PO SCH (08:46)
[2020-06-15] MEDS: Insulin DETEMIR 100 UNIT/ML X5UNITS SQ SCH (08:47)
[2020-06-15] MEDS: Insulin LISPRO 300 UNITS/3 ML VIAL SQ SCH ×4 (08:47→21:15)
[2020-06-15] MEDS: polyethylene glycoL 3350 17 GM POWD.PACK PO SCH ×2 (08:47→21:12)
[2020-06-15] MEDS: Sennosides 8.6 MG TABLET PO SCH (08:47)
[2020-06-15 09:19] LABS: Lambda Qnt Free Light Chains 19.61 mg/L (5.71-26.30)
[2020-06-15 10:56] LABS: Kappa Qnt Free Light Chains 27.51 mg/L (3.30-19.40)
[2020-06-15] MEDS: Loratadine 10 MG TABLET PO SCH (21:10)
[2020-06-15] MEDS: DilTIAZem CD (24hr) 180 MG CAP.ER.24H PO SCH (21:10)
[2020-06-15] MEDS: Aspirin Enteric Coated 81 MG Tablet PO SCH (21:11)
[2020-06-16] MEDS: *HR* OxyCODONE Immed Rel 5 MG TABLET PO PRN ×2 (01:04→06:35)
[2020-06-16 06:00] LABS: Hematocrit 30.6 % (35.3-44.9); Hemoglobin 9.2 g/dL (11.5-15.4); Mean Corpuscular HGB Conc 30.1 g/dL (31.6-35.5); Mean Corpuscular Hemoglobin 28.6 pg (28.0-33.3); Mean Platelet Volume 10.1 fL (9.4-12.4); Platelet Count 238 K/mcL (140-400); Red Blood Count 3.22 M/mcL (3.82-4.97); Red Cell Distribution Width 18.9 % (11.5-14.5); White Blood Count 4.5 K/mcL (4.3-11.1)
[2020-06-16 07:51] LABS: Alanine Aminotransferase 7 Units/L (7-52); Albumin 2.8 g/dL (3.5-5.7); Albumin/Globulin Ratio 1.4 (1.1-2.2); Alkaline Phosphatase 128 Units/L (34-104); Aspartate Amino Transferase 10 Units/L (13-39); BUN/Creatinine Ratio 21 (6-26); Bilirubin,Total 0.3 mg/dL (0.3-1.0); Blood Urea Nitrogen 12 mg/dL (8-23); Calcium 7.3 mg/dL (8.6-10.3); Carbon Dioxide 26 mEq/L (23-29); Chloride 107 mEq/L (98-107); Glucose 168 mg/dL (70-105); Magnesium 2.1 mg/dL (1.6-2.6); Osmolality,Calculated 292 (280-300); Sodium 139 mEq/L (136-145); Total Protein 4.8 g/dL (6.4-8.9); eGFR For African Americans > 60 (> 60); eGFR For Non-African Americans > 60 (> 60)
[2020-06-16] MEDS: Sennosides 8.6 MG TABLET PO SCH (08:24)
[2020-06-16] MEDS: Acetaminophen 325 MG TABLET PO SCH ×3 (08:24→20:25)
[2020-06-16] MEDS: DilTIAZem CD (24hr) 180 MG CAP.ER.24H PO SCH ×2 (08:25→20:25)
[2020-06-16] MEDS: Apixaban 5 MG TABLET PO SCH ×2 (08:25→20:27)
[2020-06-16] MEDS: Gabapentin 100 MG CAPSULE PO SCH ×3 (08:25→20:25)
[2020-06-16] MEDS: (Lenalidomide [Revlimid] 10 MG) PO SCH (08:25)
[2020-06-16] MEDS: Insulin DETEMIR 100 UNIT/ML X5UNITS SQ SCH (08:26)
[2020-06-16] MEDS: polyethylene glycoL 3350 17 GM POWD.PACK PO SCH ×2 (08:26→20:28)
[2020-06-16] MEDS: Insulin LISPRO 300 UNITS/3 ML VIAL SQ SCH ×4 (08:28→20:29)
[2020-06-16 13:49] LABS: Alpha 2 Globulin (PEP) 0.95 g/dL (0.48-1.05); Beta Globulin (PEP) 0.58 g/dL (0.48-1.10)
[2020-06-16] MEDS: Aspirin Enteric Coated 81 MG Tablet PO SCH (20:25)
[2020-06-16] MEDS: Loratadine 10 MG TABLET PO SCH (20:25)
[2020-06-17] MEDS: Apixaban 5 MG TABLET PO SCH ×2 (08:35→20:05)
[2020-06-17] MEDS: Acetaminophen 325 MG TABLET PO SCH ×3 (08:36→20:06)
[2020-06-17] MEDS: Sennosides 8.6 MG TABLET PO SCH (08:36)
[2020-06-17] MEDS: Gabapentin 100 MG CAPSULE PO SCH ×3 (08:36→20:06)
[2020-06-17] MEDS: DilTIAZem CD (24hr) 180 MG CAP.ER.24H PO SCH ×2 (08:37→20:05)
[2020-06-17] MEDS: (Lenalidomide [Revlimid] 10 MG) PO SCH (08:37)
[2020-06-17] MEDS: Insulin LISPRO 300 UNITS/3 ML VIAL SQ SCH ×4 (08:38→20:00)
[2020-06-17] MEDS: Insulin DETEMIR 100 UNIT/ML X5UNITS SQ SCH (08:39)
[2020-06-17] MEDS: polyethylene glycoL 3350 17 GM POWD.PACK PO SCH ×2 (09:12→20:05)
[2020-06-17 14:19] LABS: IFE Reflexed IFE Done; Immunoglobulin G 785 mg/dL (768-1632)
[2020-06-17 14:25] LABS: Immunoglobulin A 184 mg/dL (68-408)
[2020-06-17 14:26] LABS: Immunoglobulin M 42 mg/dL (35-263)
[2020-06-17] MEDS: Aspirin Enteric Coated 81 MG Tablet PO SCH (20:06)
[2020-06-17] MEDS: Loratadine 10 MG TABLET PO SCH (20:06)
[2020-06-17] MEDS ORDERED: *HR* HYDROcodone/Acet 5/325 mg TABLET PO PRN (22:09)
[2020-06-18] MEDS: Insulin DETEMIR 100 UNIT/ML X5UNITS SQ SCH (08:55)
[2020-06-18] MEDS: Insulin LISPRO 300 UNITS/3 ML VIAL SQ SCH ×4 (08:55→20:53)
[2020-06-18] MEDS: polyethylene glycoL 3350 17 GM POWD.PACK PO SCH ×2 (09:12→20:51)
[2020-06-18] MEDS: DilTIAZem CD (24hr) 180 MG CAP.ER.24H PO SCH ×2 (09:21→20:51)
[2020-06-18] MEDS: Apixaban 5 MG TABLET PO SCH ×2 (09:21→20:58)
[2020-06-18] MEDS: (Lenalidomide [Revlimid] 10 MG) PO SCH (09:23)
[2020-06-18] MEDS: Acetaminophen 325 MG TABLET PO SCH ×3 (09:24→20:46)
[2020-06-18] MEDS: Gabapentin 100 MG CAPSULE PO SCH ×3 (09:24→20:50)
[2020-06-18] MEDS: Sennosides 8.6 MG TABLET PO SCH (09:30)
[2020-06-18 12:39] LABS: Basophils % 0.4 %; Eosinophils # 0.4 K/mcL (0.0-0.6); Eosinophils % 7.3 %; Hematocrit 37.3 % (35.3-44.9); Hemoglobin 11.3 g/dL (11.5-15.4); Immature Granulocytes % 0.4 % (0-4); Lymphocytes # 0.7 K/mcL (0.6-4.6); Lymphocytes % 14.4 %; Mean Corpuscular HGB Conc 30.3 g/dL (31.6-35.5); Mean Corpuscular Hemoglobin 28.9 pg (28.0-33.3); Mean Corpuscular Volume 95.4 fL (83.0-100.0); Monocytes # 0.4 K/mcL (0.0-1.3); Monocytes % 7.9 %; Neutrophils # 3.5 K/mcL (1.6-8.9); Platelet Count 241 K/mcL (140-400); Red Blood Count 3.91 M/mcL (3.82-4.97); Red Cell Distribution Width 19.2 % (11.5-14.5); Segmented Neutrophils % 69.6 %; White Blood Count 5.1 K/mcL (4.3-11.1)
[2020-06-18 12:57] LABS: BUN/Creatinine Ratio 20 (6-26); Blood Urea Nitrogen 11 mg/dL (8-23); Calcium 7.8 mg/dL (8.6-10.3); Carbon Dioxide 23 mEq/L (23-29); Chloride 105 mEq/L (98-107); Glucose 182 mg/dL (70-105); Osmolality,Calculated 284 (280-300); Potassium 4.1 mEq/L (3.5-5.1); Sodium 135 mEq/L (136-145); eGFR For African Americans > 60 (> 60); eGFR For Non-African Americans > 60 (> 60)
[2020-06-18] MEDS ORDERED: *HR* Digoxin 0.5 MG/2 ML AMPUL IVP ONE (13:20)
[2020-06-18] MEDS: Aspirin Enteric Coated 81 MG Tablet PO SCH (20:49)
[2020-06-18] MEDS: Loratadine 10 MG TABLET PO SCH (20:50)
[2020-06-19] MEDS: (Lenalidomide [Revlimid] 10 MG) PO SCH (08:32)
[2020-06-19] MEDS: DilTIAZem CD (24hr) 180 MG CAP.ER.24H PO SCH ×2 (08:33→20:02)
[2020-06-19] MEDS: Apixaban 5 MG TABLET PO SCH ×2 (08:33→20:00)
[2020-06-19] MEDS: Insulin DETEMIR 100 UNIT/ML X5UNITS SQ SCH (08:33)
[2020-06-19] MEDS: Insulin LISPRO 300 UNITS/3 ML VIAL SQ SCH ×4 (08:33→22:15)
[2020-06-19] MEDS: Acetaminophen 325 MG TABLET PO SCH ×3 (08:33→20:03)
[2020-06-19] MEDS: Gabapentin 100 MG CAPSULE PO SCH ×3 (08:33→20:01)
[2020-06-19] MEDS: Sennosides 8.6 MG TABLET PO SCH (08:34)
[2020-06-19] MEDS: polyethylene glycoL 3350 17 GM POWD.PACK PO SCH ×2 (08:34→20:04)
[2020-06-19] MEDS: *HR* OxyCODONE Immed Rel 5 MG TABLET PO PRN (08:37)
[2020-06-19] MEDS: *HR* Digoxin 0.25 MG TABLET PO SCH (11:59)
[2020-06-19] MEDS: Aspirin Enteric Coated 81 MG Tablet PO SCH (20:01)
[2020-06-19] MEDS: Loratadine 10 MG TABLET PO SCH (20:02)
[2020-06-20] MEDS: *HR* OxyCODONE Immed Rel 5 MG TABLET PO PRN (04:34)
[2020-06-20] MEDS: Acetaminophen 325 MG TABLET PO SCH ×3 (09:16→20:46)
[2020-06-20] MEDS: DilTIAZem CD (24hr) 180 MG CAP.ER.24H PO SCH ×2 (09:16→20:46)
[2020-06-20] MEDS: (Lenalidomide [Revlimid] 10 MG) PO SCH (09:16)
[2020-06-20] MEDS: Gabapentin 100 MG CAPSULE PO SCH ×3 (09:16→20:47)
[2020-06-20] MEDS: *HR* Digoxin 0.25 MG TABLET PO SCH (09:16)
[2020-06-20] MEDS: Apixaban 5 MG TABLET PO SCH ×2 (09:16→20:46)
[2020-06-20] MEDS: Insulin LISPRO 300 UNITS/3 ML VIAL SQ SCH ×4 (09:17→20:47)
[2020-06-20] MEDS: Insulin DETEMIR 100 UNIT/ML X5UNITS SQ SCH (09:17)
[2020-06-20] MEDS: polyethylene glycoL 3350 17 GM POWD.PACK PO SCH ×2 (09:21→20:47)
[2020-06-20] MEDS: Sennosides 8.6 MG TABLET PO SCH (09:21)
[2020-06-20] MEDS: Aspirin Enteric Coated 81 MG Tablet PO SCH (20:46)
[2020-06-20] MEDS: Loratadine 10 MG TABLET PO SCH (20:46)
[2020-06-21] MEDS: *HR* OxyCODONE Immed Rel 5 MG TABLET PO PRN (04:35)
[2020-06-21] MEDS: polyethylene glycoL 3350 17 GM POWD.PACK PO SCH ×2 (08:29→23:18)
[2020-06-21] MEDS: DilTIAZem CD (24hr) 180 MG CAP.ER.24H PO SCH ×2 (08:33→20:04)
[2020-06-21] MEDS: *HR* Digoxin 0.25 MG TABLET PO SCH (08:33)
[2020-06-21] MEDS: Acetaminophen 325 MG TABLET PO SCH ×3 (08:33→20:04)
[2020-06-21] MEDS: Apixaban 5 MG TABLET PO SCH ×2 (08:33→20:05)
[2020-06-21] MEDS: Gabapentin 100 MG CAPSULE PO SCH ×3 (08:33→20:05)
[2020-06-21] MEDS: Sennosides 8.6 MG TABLET PO SCH (08:33)
[2020-06-21] MEDS: Insulin LISPRO 300 UNITS/3 ML VIAL SQ SCH ×4 (08:38→20:05)
[2020-06-21] MEDS: Insulin DETEMIR 100 UNIT/ML X5UNITS SQ SCH (08:39)
[2020-06-21] MEDS: Aspirin Enteric Coated 81 MG Tablet PO SCH (20:04)
[2020-06-21] MEDS: Loratadine 10 MG TABLET PO SCH (20:05)
[2020-06-21] MEDS ORDERED: Ondansetron ODT 4 MG TAB.RAPDIS SL ONE ×2 (21:40→23:30)
[2020-06-22] MEDS: DilTIAZem CD (24hr) 180 MG CAP.ER.24H PO SCH ×2 (09:30→21:40)
[2020-06-22] MEDS: *HR* Digoxin 0.25 MG TABLET PO SCH (09:30)
[2020-06-22] MEDS: Acetaminophen 325 MG TABLET PO SCH ×3 (09:30→21:39)
[2020-06-22] MEDS: Apixaban 5 MG TABLET PO SCH ×2 (09:30→21:42)
[2020-06-22] MEDS: Gabapentin 100 MG CAPSULE PO SCH ×3 (09:30→21:38)
[2020-06-22] MEDS: polyethylene glycoL 3350 17 GM POWD.PACK PO SCH ×2 (09:31→21:40)
[2020-06-22] MEDS: Sennosides 8.6 MG TABLET PO SCH (09:31)
[2020-06-22] MEDS: Insulin DETEMIR 100 UNIT/ML X5UNITS SQ SCH (09:36)
[2020-06-22] MEDS: Insulin LISPRO 300 UNITS/3 ML VIAL SQ SCH ×4 (09:36→21:42)
[2020-06-22] MEDS: Aspirin Enteric Coated 81 MG Tablet PO SCH (21:39)
[2020-06-22] MEDS: Loratadine 10 MG TABLET PO SCH (21:40)
[2020-06-23] MEDS: *HR* OxyCODONE Immed Rel 5 MG TABLET PO PRN (03:26)
[2020-06-23] MEDS: Acetaminophen 325 MG TABLET PO SCH ×3 (08:41→20:25)
[2020-06-23] MEDS: *HR* Digoxin 0.25 MG TABLET PO SCH (08:41)
[2020-06-23] MEDS: Apixaban 5 MG TABLET PO SCH ×2 (08:41→20:25)
[2020-06-23] MEDS: Gabapentin 100 MG CAPSULE PO SCH ×3 (08:41→20:25)
[2020-06-23] MEDS: DilTIAZem CD (24hr) 180 MG CAP.ER.24H PO SCH ×2 (08:41→20:25)
[2020-06-23] MEDS: polyethylene glycoL 3350 17 GM POWD.PACK PO SCH ×2 (08:43→20:26)
[2020-06-23] MEDS: Sennosides 8.6 MG TABLET PO SCH (08:43)
[2020-06-23] MEDS: Insulin LISPRO 300 UNITS/3 ML VIAL SQ SCH ×4 (08:43→20:26)
[2020-06-23] MEDS: Insulin DETEMIR 100 UNIT/ML X5UNITS SQ SCH (10:20)
[2020-06-23] MEDS: Loratadine 10 MG TABLET PO SCH (20:25)
[2020-06-23] MEDS: Aspirin Enteric Coated 81 MG Tablet PO SCH (20:25)
[2020-06-23] MEDS: Simethicone 80 MG TAB.CHEW PO PRN (20:25)
[2020-06-24] MEDS: *HR* OxyCODONE Immed Rel 5 MG TABLET PO PRN (06:13)
[2020-06-24] MEDS: Insulin LISPRO 300 UNITS/3 ML VIAL SQ SCH ×4 (08:28→21:26)
[2020-06-24] MEDS: *HR* Digoxin 0.25 MG TABLET PO SCH (08:38)
[2020-06-24] MEDS: Gabapentin 100 MG CAPSULE PO SCH ×3 (08:38→21:25)
[2020-06-24] MEDS: DilTIAZem CD (24hr) 180 MG CAP.ER.24H PO SCH ×2 (08:38→21:25)
[2020-06-24] MEDS: Apixaban 5 MG TABLET PO SCH ×2 (08:38→21:25)
[2020-06-24] MEDS: Acetaminophen 325 MG TABLET PO SCH ×3 (08:38→21:25)
[2020-06-24] MEDS: Insulin DETEMIR 100 UNIT/ML X5UNITS SQ SCH (08:39)
[2020-06-24] MEDS: polyethylene glycoL 3350 17 GM POWD.PACK PO SCH ×2 (08:39→21:28)
[2020-06-24] MEDS: Sennosides 8.6 MG TABLET PO SCH (08:39)
[2020-06-24 18:58] LABS: Alanine Aminotransferase 6 Units/L (7-52); Albumin/Globulin Ratio 1.1 (1.1-2.2); Alkaline Phosphatase 118 Units/L (34-104); Aspartate Amino Transferase 6 Units/L (13-39); BUN/Creatinine Ratio 16 (6-26); Bilirubin,Total 0.3 mg/dL (0.3-1.0); Blood Urea Nitrogen 8 mg/dL (8-23); Carbon Dioxide 24 mEq/L (23-29); Chloride 106 mEq/L (98-107); Globulin 2.7 g/dL (2.4-3.5); Glucose 124 mg/dL (70-105); Osmolality,Calculated 282 (280-300); Potassium 3.4 mEq/L (3.5-5.1); Sodium 136 mEq/L (136-145); Total Protein 5.7 g/dL (6.4-8.9); eGFR For African Americans > 60 (> 60); eGFR For Non-African Americans > 60 (> 60)
[2020-06-24] MEDS: Aspirin Enteric Coated 81 MG Tablet PO SCH (21:25)
[2020-06-24] MEDS: Simethicone 80 MG TAB.CHEW PO PRN (21:25)
[2020-06-24] MEDS: Loratadine 10 MG TABLET PO SCH (21:25)
[2020-06-25] MEDS: *HR* OxyCODONE Immed Rel 5 MG TABLET PO PRN ×3 (05:00→17:47)
[2020-06-25] MEDS: DilTIAZem CD (24hr) 180 MG CAP.ER.24H PO SCH ×2 (08:19→20:42)
[2020-06-25] MEDS: *HR* Digoxin 0.25 MG TABLET PO SCH (08:19)
[2020-06-25] MEDS: Apixaban 5 MG TABLET PO SCH ×2 (08:19→20:42)
[2020-06-25] MEDS: Gabapentin 100 MG CAPSULE PO SCH ×3 (08:19→20:42)
[2020-06-25] MEDS: Acetaminophen 325 MG TABLET PO SCH ×3 (08:19→20:41)
[2020-06-25] MEDS: Insulin LISPRO 300 UNITS/3 ML VIAL SQ SCH ×4 (08:20→20:43)
[2020-06-25] MEDS: Sennosides 8.6 MG TABLET PO SCH (08:20)
[2020-06-25] MEDS: polyethylene glycoL 3350 17 GM POWD.PACK PO SCH ×2 (08:20→20:43)
[2020-06-25] MEDS: Insulin DETEMIR 100 UNIT/ML X5UNITS SQ SCH (08:23)
[2020-06-25] MEDS: Aspirin Enteric Coated 81 MG Tablet PO SCH (20:42)
[2020-06-25] MEDS: Loratadine 10 MG TABLET PO SCH (20:42)
[2020-06-26] MEDS: *HR* OxyCODONE Immed Rel 5 MG TABLET PO PRN (05:22)
[2020-06-26] MEDS: polyethylene glycoL 3350 17 GM POWD.PACK PO SCH ×2 (08:40→20:54)
[2020-06-26] MEDS: Insulin LISPRO 300 UNITS/3 ML VIAL SQ SCH ×4 (08:40→20:53)
[2020-06-26] MEDS: *HR* Digoxin 0.25 MG TABLET PO SCH (08:41)
[2020-06-26] MEDS: Apixaban 5 MG TABLET PO SCH ×2 (08:41→20:53)
[2020-06-26] MEDS: DilTIAZem CD (24hr) 180 MG CAP.ER.24H PO SCH ×2 (08:41→20:52)
[2020-06-26] MEDS: Sennosides 8.6 MG TABLET PO SCH (08:41)
[2020-06-26] MEDS: Gabapentin 100 MG CAPSULE PO SCH ×3 (08:41→20:53)
[2020-06-26] MEDS: Acetaminophen 325 MG TABLET PO SCH ×3 (08:41→20:52)
[2020-06-26] MEDS: Insulin DETEMIR 100 UNIT/ML X5UNITS SQ SCH (09:57)
[2020-06-26] MEDS: Simethicone 80 MG TAB.CHEW PO PRN (20:53)
[2020-06-26] MEDS: Aspirin Enteric Coated 81 MG Tablet PO SCH (20:53)
[2020-06-26] MEDS: Loratadine 10 MG TABLET PO SCH (20:53)
[2020-06-26] MEDS: FLUOROURACIL 5% TP SCH (20:54)
[2020-06-27] MEDS: *HR* OxyCODONE Immed Rel 5 MG TABLET PO PRN (06:14)
[2020-06-27] MEDS: Insulin LISPRO 300 UNITS/3 ML VIAL SQ SCH ×4 (07:55→17:22)
[2020-06-27] MEDS: Gabapentin 100 MG CAPSULE PO SCH ×3 (09:49→20:48)
[2020-06-27] MEDS: *HR* Digoxin 0.25 MG TABLET PO SCH (09:49)
[2020-06-27] MEDS: Insulin DETEMIR 100 UNIT/ML X5UNITS SQ SCH (09:49)
[2020-06-27] MEDS: Sennosides 8.6 MG TABLET PO SCH (09:49)
[2020-06-27] MEDS: DilTIAZem CD (24hr) 180 MG CAP.ER.24H PO SCH ×2 (09:49→20:48)
[2020-06-27] MEDS: polyethylene glycoL 3350 17 GM POWD.PACK PO SCH ×2 (09:50→20:48)
[2020-06-27] MEDS: Apixaban 5 MG TABLET PO SCH ×2 (09:50→20:48)
[2020-06-27] MEDS: Acetaminophen 325 MG TABLET PO SCH ×3 (09:50→20:47)
[2020-06-27] MEDS: dexAMETHasone 4 MG TABLET PO SCH (09:50)
[2020-06-27] MEDS: FLUOROURACIL 5% TP SCH ×2 (09:53→20:49)
[2020-06-27] MEDS: REVLIMID 15 MG PO SCH (10:32)
[2020-06-27] MEDS: (Lenalidomide [Revlimid] 10 MG) PO SCH (10:33)
[2020-06-27] MEDS: Loratadine 10 MG TABLET PO SCH (20:48)
[2020-06-27] MEDS: Aspirin Enteric Coated 81 MG Tablet PO SCH (20:48)
[2020-06-27] MEDS ORDERED: dexAMETHasone 4 MG TABLET PO SCH (21:15)
[2020-06-28] MEDS: *HR* OxyCODONE Immed Rel 5 MG TABLET PO PRN (06:43)
[2020-06-28] MEDS: Sennosides 8.6 MG TABLET PO SCH (08:27)
[2020-06-28] MEDS: Insulin LISPRO 300 UNITS/3 ML VIAL SQ SCH ×4 (08:27→21:39)
[2020-06-28] MEDS: polyethylene glycoL 3350 17 GM POWD.PACK PO SCH ×2 (08:28→21:38)
[2020-06-28] MEDS: Insulin DETEMIR 100 UNIT/ML X5UNITS SQ SCH (08:39)
[2020-06-28] MEDS: Gabapentin 100 MG CAPSULE PO SCH ×3 (08:40→21:37)
[2020-06-28] MEDS: FLUOROURACIL 5% TP SCH ×2 (08:40→21:37)
[2020-06-28] MEDS: *HR* Digoxin 0.25 MG TABLET PO SCH (08:40)
[2020-06-28] MEDS: DilTIAZem CD (24hr) 180 MG CAP.ER.24H PO SCH ×2 (08:40→21:38)
[2020-06-28] MEDS: REVLIMID 15 MG PO SCH (08:40)
[2020-06-28] MEDS: Apixaban 5 MG TABLET PO SCH ×2 (08:41→21:38)
[2020-06-28] MEDS: Acetaminophen 325 MG TABLET PO SCH ×3 (08:41→21:37)
[2020-06-28] MEDS: dexAMETHasone 4 MG TABLET PO SCH (08:48)
[2020-06-28] MEDS ORDERED: dexAMETHasone 4 MG TABLET PO SCH (09:00)
[2020-06-28] MEDS: Simethicone 80 MG TAB.CHEW PO PRN (18:15)
[2020-06-28] MEDS: Loratadine 10 MG TABLET PO SCH (21:37)
[2020-06-28] MEDS: Aspirin Enteric Coated 81 MG Tablet PO SCH (21:37)
[2020-06-29] MEDS: *HR* OxyCODONE Immed Rel 5 MG TABLET PO PRN (06:47)
[2020-06-29] MEDS: Gabapentin 100 MG CAPSULE PO SCH ×3 (08:46→21:59)
[2020-06-29] MEDS: *HR* Digoxin 0.25 MG TABLET PO SCH (08:46)
[2020-06-29] MEDS: Apixaban 5 MG TABLET PO SCH ×2 (08:46→21:59)
[2020-06-29] MEDS: DilTIAZem CD (24hr) 180 MG CAP.ER.24H PO SCH ×2 (08:46→22:00)
[2020-06-29] MEDS: Insulin LISPRO 300 UNITS/3 ML VIAL SQ SCH ×4 (08:46→21:20)
[2020-06-29] MEDS: Acetaminophen 325 MG TABLET PO SCH ×3 (08:46→21:57)
[2020-06-29] MEDS: polyethylene glycoL 3350 17 GM POWD.PACK PO SCH ×2 (08:47→22:00)
[2020-06-29] MEDS: Insulin DETEMIR 100 UNIT/ML X5UNITS SQ SCH (08:47)
[2020-06-29] MEDS: Sennosides 8.6 MG TABLET PO SCH (08:47)
[2020-06-29] MEDS: FLUOROURACIL 5% TP SCH ×2 (08:47→22:01)
[2020-06-29] MEDS: REVLIMID 15 MG PO SCH (08:47)
[2020-06-29] MEDS: Loratadine 10 MG TABLET PO SCH (21:58)
[2020-06-29] MEDS: Aspirin Enteric Coated 81 MG Tablet PO SCH (21:58)
[2020-06-30 08:36] VITALS: BP 117/59
[2020-06-30] MEDS: Insulin LISPRO 300 UNITS/3 ML VIAL SQ SCH ×2 (08:46→11:55)
[2020-06-30] MEDS: REVLIMID 15 MG PO SCH (08:46)
[2020-06-30] MEDS: polyethylene glycoL 3350 17 GM POWD.PACK PO SCH (08:46)
[2020-06-30] MEDS: FLUOROURACIL 5% TP SCH (08:46)
[2020-06-30] MEDS: *HR* Digoxin 0.25 MG TABLET PO SCH (08:47)
[2020-06-30] MEDS: Gabapentin 100 MG CAPSULE PO SCH (08:47)
[2020-06-30] MEDS: Insulin DETEMIR 100 UNIT/ML X5UNITS SQ SCH (08:47)
[2020-06-30] MEDS: Apixaban 5 MG TABLET PO SCH (08:47)
[2020-06-30] MEDS: Sennosides 8.6 MG TABLET PO SCH (08:48)
[2020-06-30] MEDS: DilTIAZem CD (24hr) 180 MG CAP.ER.24H PO SCH (08:48)
[2020-06-30] MEDS: Acetaminophen 325 MG TABLET PO SCH (08:48)
[2020-06-30] MEDS: *HR* OxyCODONE Immed Rel 5 MG TABLET PO PRN (09:05)
[2020-06-30] MEDS ORDERED: FLU Vac QV 20-21 (6Month+)/PF 0.5 ML SYRINGE IM ONE (12:30)
== END 2020-06-30 13:27 | disposition home health service (06) | DRG 560 ==
LOC: INPGRE 19:39
PROVIDERS: ADMIT Family Medicine; ATTEND Family Medicine

== ENCOUNTER 2020-09-18 17:03 | Observation (INO) ==
[2020-09-18] MEDS: Ertapenem 1,000 MG in 0.9 % Sodium Chloride Mini Bag 100 ML IVPB SCH (18:00)
[2020-09-18] MEDS ORDERED: Simethicone 80 MG TAB.CHEW PO STA (19:11)
[2020-09-18 19:51] LABS: Influenza A PCR Negative (Negative); Influenza B PCR Negative (Negative); Resp. Syncytial Virus PCR Negative (Negative)
[2020-09-18 19:57] LABS: SARS-CoV-2 by PCR (In House) Negative (Negative)
[2020-09-18] MEDS ORDERED: Ondansetron ODT 4 MG TAB.RAPDIS SL PRN (20:48)
[2020-09-18] MEDS ORDERED: Naloxone 0.4 MG/ML INJ IVP PRN (20:48)
[2020-09-18] MEDS ORDERED: Mag Hydrox/Al Hydrox/Simeth 30 ML UDC PO PRN (20:48)
[2020-09-18] MEDS ORDERED: Simethicone 80 MG TAB.CHEW PO PRN (20:54)
[2020-09-18] MEDS ORDERED: *HR* OxyCODONE/APAP 5/325 TABLET PO PRN (20:54)
[2020-09-18] MEDS ORDERED: dexAMETHasone 4 MG TABLET PO SCH (21:00)
[2020-09-18] MEDS ORDERED: *HR* Dextrose 50 % in Water (Vial) 50 ML VIAL IVP PRN (21:12)
[2020-09-18] MEDS ORDERED: Dextrose Gel 15 GM/37.5 ML TUBE PO PRN ×2 (21:12)
[2020-09-18] MEDS ORDERED: D5% in Water 1,000 ML IVC PRN (21:12)
[2020-09-18] MEDS: Cholecalciferol (D-3) 1,000 UNIT (25MCG) TABLET PO SCH (21:37)
[2020-09-18] MEDS: Acetaminophen 325 MG TABLET PO SCH (21:37)
[2020-09-18] MEDS ORDERED: Calcium Gluconate 1gm/50mL 1 GM/50 ML BAG IVPB STA (21:51)
[2020-09-18] MEDS ORDERED: Aspirin Enteric Coated 81 MG Tablet PO SCH (22:15)
[2020-09-18] MEDS ORDERED: Loratadine 10 MG TABLET PO SCH (22:15)
[2020-09-18] MEDS: Magnesium Oxide 400 MG TABLET PO SCH (22:27)
[2020-09-19] MEDS ORDERED: *HR* Enoxaparin 40 MG/0.4 ML SYRINGE SQ SCH (07:00)
[2020-09-19 08:15] LABS: Basophils % 0.3 %; Hematocrit 31.9 % (35.3-44.9); Hemoglobin 10.2 g/dL (11.5-15.4); Immature Granulocytes % 0.9 % (0-4); Lymphocytes # 0.7 K/mcL (0.6-4.6); Lymphocytes % 19.9 %; Mean Corpuscular Hemoglobin 31.2 pg (28.0-33.3); Mean Corpuscular Volume 97.6 fL (83.0-100.0); Mean Platelet Volume 10.5 fL (9.4-12.4); Monocytes # 0.3 K/mcL (0.0-1.3); Monocytes % 7.7 %; Platelet Count 174 K/mcL (140-400); Red Blood Count 3.27 M/mcL (3.82-4.97); Red Cell Distribution Width 21.2 % (11.5-14.5); Segmented Neutrophils % 71.2 %; White Blood Count 3.3 K/mcL (4.3-11.1)
[2020-09-19 08:17] LABS: Neutrophils # 2.4 K/mcL (1.6-8.9)
[2020-09-19 08:46] LABS: Alanine Aminotransferase 9 Units/L (7-52); Albumin 2.6 g/dL (3.5-5.7); Albumin/Globulin Ratio 1.2 (1.1-2.2); Alkaline Phosphatase 68 Units/L (34-104); Aspartate Amino Transferase 11 Units/L (13-39); BUN/Creatinine Ratio 15 (6-26); Bilirubin,Total 0.3 mg/dL (0.3-1.0); Blood Urea Nitrogen 11 mg/dL (8-23); Calcium 7.5 mg/dL (8.6-10.3); Carbon Dioxide 20 mEq/L (23-29); Chloride 105 mEq/L (98-107); Globulin 2.2 g/dL (2.4-3.5); Glucose 210 mg/dL (70-105); Magnesium 1.8 mg/dL (1.6-2.6); Osmolality,Calculated 284 (280-300); Phosphorous 3.6 mg/dL (2.7-4.5); Potassium 4.6 mEq/L (3.5-5.1); Sodium 134 mEq/L (136-145); Total Protein 4.8 g/dL (6.4-8.9); eGFR For African Americans > 60 (> 60); eGFR For Non-African Americans > 60 (> 60)
[2020-09-19] MEDS ORDERED: Furosemide 40 MG in 0.9 % Sodium Chloride 100 ML IV ONE (09:00)
[2020-09-19] MEDS: Acetaminophen 325 MG TABLET PO SCH ×2 (09:05→15:32)
[2020-09-19] MEDS: Ertapenem 1,000 MG in 0.9 % Sodium Chloride Mini Bag 100 ML IVPB SCH (09:06)
[2020-09-19] MEDS: Cholecalciferol (D-3) 1,000 UNIT (25MCG) TABLET PO SCH (09:06)
[2020-09-19] MEDS: Magnesium Oxide 400 MG TABLET PO SCH (09:07)
[2020-09-19] MEDS ORDERED: Calcium Gluconate 1gm/50mL 1 GM/50 ML BAG IVPB PRN (14:52)
[2020-09-19 15:24] VITALS: BP 109/63
== END 2020-09-19 17:00 | disposition home health service (06) ==
LOC: EMEROOGRE 17:03 → INPGRE 17:03
PROVIDERS: ADMIT Family Medicine; ATTEND Family Medicine

== ENCOUNTER 2020-11-13 14:39 | Inpatient (IN) ==
[2020-11-13] MEDS ORDERED: Morphine Sulfate 2 MG/ML SYRINGE IVP ONE (15:05)
[2020-11-13 15:20] LABS: Basophils % 0.2 %; Eosinophils % 0.2 %; Hematocrit 31.5 % (35.3-44.9); Immature Granulocytes % 0.2 % (0-4); Lymphocytes # 0.4 K/mcL (0.6-4.6); Lymphocytes % 9.1 %; Mean Corpuscular HGB Conc 31.7 g/dL (31.6-35.5); Mean Corpuscular Hemoglobin 31.4 pg (28.0-33.3); Mean Corpuscular Volume 99.1 fL (83.0-100.0); Mean Platelet Volume 10.8 fL (9.4-12.4); Monocytes # 0.3 K/mcL (0.0-1.3); Monocytes % 7.3 %; Neutrophils # 3.8 K/mcL (1.6-8.9); Platelet Count 208 K/mcL (140-400); Red Blood Count 3.18 M/mcL (3.82-4.97); White Blood Count 4.5 K/mcL (4.3-11.1)
[2020-11-13 15:25] LABS: INR 1.7; Prothrombin Time 19.3 Seconds (9.4-12.1)
[2020-11-13 15:32] LABS: BUN/Creatinine Ratio 33 (6-26); Blood Urea Nitrogen 18 mg/dL (8-23); Calcium 8.1 mg/dL (8.6-10.3); Carbon Dioxide 21 mEq/L (23-29); Chloride 108 mEq/L (98-107); Creatine Kinase 223 Units/L (30-223); Glucose 140 mg/dL (70-105); Osmolality,Calculated 290 (280-300); Potassium 3.5 mEq/L (3.5-5.1); Sodium 138 mEq/L (136-145); eGFR For African Americans > 60 (> 60); eGFR For Non-African Americans > 60 (> 60)
[2020-11-13 15:36] LABS: Troponin I < 0.03 ng/mL (< 0.04)
[2020-11-13] MEDS ORDERED: 0.9 % Sodium Chloride 1,000 ML IVC SCH ×2 (18:15→18:58)
[2020-11-13 18:43] LABS: Bilirubin,Urine Negative (Negative); Blood,Urine Negative (Negative); Clarity,Urine Clear (Clear); Color,Urine Yellow (Yellow); Glucose,Urine (UA) Normal (Normal); Ketones,Urine 40 mg/dL (Negative); Leukocyte Esterase,Urine Negative (Negative); Nitrite,Urine Negative (Negative); PH,Urine 5.5 pH Units (5.0-8.0); Protein,Urine Negative (Neg-Trace); Specific Gravity,Urine 1.025 (1.010-1.025); Urobilinogen,Urine Normal (Normal)
[2020-11-13] MEDS ORDERED: Melatonin 3 MG TABLET PO PRN (18:58)
[2020-11-13] MEDS ORDERED: Naloxone 0.4 MG/ML INJ IVP PRN (18:58)
[2020-11-13] MEDS ORDERED: dexAMETHasone 4 MG TABLET PO SCH (18:58)
[2020-11-13] MEDS ORDERED: *HR* OxyCODONE/APAP 5/325 TABLET PO PRN (20:52)
[2020-11-13] MEDS ORDERED: Ondansetron ODT 4 MG TAB.RAPDIS PO PRN (20:59)
[2020-11-13] MEDS ORDERED: FLUOROURACIL TP SCH (21:00)
[2020-11-13] MEDS ORDERED: Apixaban 5 MG TABLET PO SCH (21:00)
[2020-11-13] MEDS ORDERED: Acyclovir 200 MG CAPSULE PO SCH (21:00)
[2020-11-13] MEDS ORDERED: Magnesium Oxide 400 MG TABLET PO SCH (21:00)
[2020-11-13 21:01] VITALS: BP 137/76
[2020-11-14] MEDS ORDERED: LENALIDOMIDE 15 MG PO SCH (09:00)
[2020-11-14] MEDS ORDERED: Aspirin Enteric Coated 81 MG Tablet PO SCH (09:00)
== END 2020-11-13 23:05 | disposition short-term general hospital (02) | DRG 948 ==
LOC: INPGRE 14:39 → EMEROOGRE 14:39 → INPGRE 18:59
PROVIDERS: ADMIT Family Medicine; ATTEND Family Medicine